=== PATIENT | female | born 1945 | race Caucasian/White ===

== ENCOUNTER 2018-01-06 13:29 | Emergency (ER) ==
[2018-01-06 13:36] VITALS: BP 167/72; TEMP 97.6; BMI 47.9
--- NOTE | 2018-01-06 14:38 | CT ---
EXAM: CT head without contrast HISTORY: Dizzy COMPARISON: None TECHNIQUE: Serial axial images of the brain were obtained from the skull base to the vertex without IV contrast. FINDINGS: The ventricles, cisterns and sulci demonstrate mild generalized volume loss. The otto-whi te matter junction is maintained. There is mild low attenuation in the periventricular white matter. No midline shift or mass is identified. There is no abnormal intra or extra-axial fluid collection. The paranasal sinuses and mastoid air cells are clear. The osseous calvarium is intact. IMPRESSION: 1. No acute intracranial abnormality or hemorrhage. 2. Generalized volume loss and microangiopathy. If there is concern for stroke, MRI may be obtained.
--- NOTE | 2018-01-06 14:47 | CT ---
EXAM: CT chest without contrast HISTORY: Cough COMPARISON: None TECHNIQUE: CT chest performed without intravenous contrast. Coronal and sagittal reformatted images obtained. FINDINGS: There is enlarged right thyroid with possible dominant nodule, poorly evaluated due to art ifact. Heart normal in size. No pericardial effusion. Aorta normal in caliber. Mild atheroscleros is. Small hiatal hernia. Evaluation for lymphadenopathy limited without contrast. No lymphadenopat hy identified. Granulomatous calcification. Patient status post cholecystectomy. No acute abnormal ities of the bones. Degenerative change in the spine. The central airway patent. No airspace consol idation. No pleural effusion or pneumothorax. 4 mm micronodule nodule right lung image 33, 2 mm stef ronodule right lung image 32, 4 mm micronodule right lung image 29, 2 mm micronodule left lung image 32. IMPRESSION: 1. No acute cardiopulmonary process. 2. Enlarged right thyroid with suggestion of dominant nodule, poorly evaluated due to artifact. Rec ommend correlation with thyroid ultrasound. 3. Several micronodules measuring up to [address] chest follow-up can be considered in 12 months if patient at high risk for malignancy, such as a smoker or former smoker. Otherwise, no follow-up otto mmended.
--- NOTE | 2018-01-06 15:40 | ED.PDOC ---
General ED Provider: Dr. GAETANO GUTIÉRREZ Chief Complaint: Weakness Stated Complaint: GENERALIZED WEAKNESS Time Seen by Physician: 13:33 (SEEN WITH ENTIRE NURSING STAFF ON ARRIVAL IN ROOM 5) Mode of Arrival: Walk-In Information Source: Patient Exam Limitations: No limitations Primary Care Provider: FLOWER ANDRADE Nursing and Triage Documentation Reviewed and Agree: Yes Does patient meet sepsis criteria?: No System Inflammatory Response Syndrome: Not Applicable Sepsis Protocol: For patient's 13 years and over: Temp is 96.8 and below OR 101 and greater Pulse >90 BPM Resp >20/minute Acutely Altered Mental Status Are patient's symptoms suggestive of a new infection, such as: -Pneumonia -Skin, Soft Tissue -Endocarditis -UTI -Bone, Joint Infection -Implantable Device -Acute Abdominal Infection -Wound Infection -Meningitis -Blood Stream Catheter Infection -Unknown Neurological Complaint Exam - Weakness Complaint/Exam Last Known Well: LAST WEEK Onset: Gradual Duration: 7 DAYS Symptoms Are: Still present Timing: Constant Episodes Lasting: Days Initial Severity: Mild Current Severity: Mild Character: Reports: Weak. Denies: Head spinning, Room spinning, Lightheaded Aggravating: Reports: None Alleviating: Reports: None Associated Signs and Symptoms: Denies: Nausea, Vomiting, Diaphoresis, Tinnitus, Chest pain, Short of air, Palpitations, Unsteady gait, GI blood loss, Visual changes, Decreased oral intake, Change in medication, Change in diet, OTC meds, Loss of balance Related History: Similar episode Review of Systems - Review Of Systems Constitutional: Reports: Malaise, Weakness Eyes: Reports: No symptoms Ears, Nose, Mouth, Throat: Reports: No symptoms Respiratory: Reports: No symptoms Cardiac: Reports: No symptoms GI: Reports: No symptoms : Reports: No symptoms Musculoskeletal: Reports: No symptoms Skin: Reports: No symptoms Neurological: Reports: No symptoms Endocrine: Reports: No symptoms Hematologic/Lymphatic: Reports: No symptoms All Other Systems: Reviewed and Negative Past Medical History - Past Medical History Previously Healthy: Yes Endocrine: Reports: None Cardiovascular: Reports: Hypertension Respiratory: Reports: None Hematological: Reports: None Gastrointestinal: Reports: None Genitourinary: Reports: None Neuro/Psych: Reports: None Musculoskeletal: Reports: None Cancer: Reports: None Last Menstrual Period: NONE - Surgical History General Surgical History: Reports: None - Family History Family History: Reports: None - Social History Smoking Status: Never smoker Hx Substance Use: No Alcohol Screening: Occasionally Physical Exam - Physical Exam Appearance: Well-appearing, No pain distress, Well-nourished Eyes: VALENCIA, EOMI, Conjunctiva clear ENT: Ears normal, Nose normal, Oropharynx normal Respiratory: Airway patent, Breath sounds clear, Breath sounds equal, Respirations nonlabored Cardiovascular: RRR, Pulses normal, No rub, No murmur GI/: Soft, Nontender, No masses, Bowel sounds normal, No Organomegaly Musculoskeletal: Normal strength, ROM intact, No edema, No calf tenderness Skin: Warm, Dry, Normal color Neurological: Sensation intact, Motor intact, Reflexes intact, Cranial nerves intact, Alert, Oriented Psychiatric: Affect appropriate, Mood appropriate Interpretation - Radiology Interpretation Radiology Interpretation By: Radiologist Radiology Results: No acute changes - Day Treatment Clinician/Art Therapist Rate: Normal Ectopy: None - EKG Interpretation Rate: Normal Rhythm: Sinus Re-Evaluation - Re-Evaluation Time of Re-Evaluation: 02:30 Status: Improved Vital Signs Stable: Yes Pain Level: 0 Appearance: NAD Lungs: Clear Skin: Warm and Dry Neuro: Alert and Oriented X3 CV: RRR - Re-Evaluation Time of Re-Evaluation: 15:40 Status: Improved Vital Signs Stable: Yes Pain Level: 0 Appearance: NAD Skin: Warm and Dry Neuro: Alert and Oriented X3 CV: RRR Critical Care Note - Critical Care Note Total Time (mins): 0 Course - Course Hematology/Chemistry: 01/06/18 13:45 01/06/18 13:45 Orders, Labs, Meds: Lab Review 01/06/18 01/06/18 01/06/18 13:45 13:45 13:45 WBC 6.37 RBC 4.08 L Hgb 12.8 Hct 37.3 MCV 91.4 MCH 31.4 H MCHC 34.3 RDW Coeff of Megan 12.6 Plt Count 194 Immature Gran % (Auto) 0.6 Neut % (Auto) 61.9 Lymph % (Auto) 28.3 Gaston % (Auto) 6.4 Eos % (Auto) 1.9 Baso % (Auto) 0.9 Immature Gran # (Auto) 0.0 Neut # (Auto) 3.9 Lymph # (Auto) 1.8 Gaston # (Auto) 0.4 Eos # (Auto) 0.1 Baso # (Auto) 0.1 PT 9.5 INR 0.95 APTT 24.7 Puncture Site O2 Saturation ABG pH ABG pCO2 ABG pO2 ABG HCO3 ABG Total CO2 ABG Base Excess Andrez Test FiO2 % Sodium 138 Potassium 4.0 Chloride 101 Carbon Dioxide 29 Anion Gap 12.0 BUN 16 Creatinine 1.11 Estimated GFR (MDRD) 48.00 BUN/Creatinine Ratio 14.41 Glucose 103 Calcium 9.8 Total Bilirubin 0.6 AST 21 ALT 19 Alkaline Phosphatase 70 Total Creatine Kinase 30 Troponin I 0.0100 Total Protein 7.2 Albumin 3.2 L Globulin 4.0 Albumin/Globulin Ratio 0.80 TSH 2.123 Free T4 0.96 01/06/18 13:49 WBC RBC Hgb Hct MCV MCH MCHC RDW Coeff of Megan Plt Count Immature Gran % (Auto) Neut % (Auto) Lymph % (Auto) Gaston % (Auto) Eos % (Auto) Baso % (Auto) Immature Gran # (Auto) Neut # (Auto) Lymph # (Auto) Gaston # (Auto) Eos # (Auto) Baso # (Auto) PT INR APTT Puncture Site Rr O2 Saturation 96.0 ABG pH 7.423 ABG pCO2 41.3 ABG pO2 80.0 L ABG HCO3 27.0 H ABG Total CO2 26 ABG Base Excess 3 H Andrez Test + FiO2 % 21.0 Sodium Potassium Chloride Carbon Dioxide Anion Gap BUN Creatinine Estimated GFR (MDRD) BUN/Creatinine Ratio Glucose Calcium Total Bilirubin AST ALT Alkaline Phosphatase Total Creatine Kinase Troponin I Total Protein Albumin Globulin Albumin/Globulin Ratio TSH Free T4 Orders Category Date Time Status ABG DRAW REQUEST Stat CARDIO 01/06/18 13:51 Completed EKG-(ED ONLY) Stat CARDIO 01/06/18 13:49 Completed ED IV/MEDIPORT/POWERPORT .ONCE EMERGENCY 01/06/18 13:49 Active ED IV/MEDIPORT/POWERPORT .ONCE EMERGENCY 01/06/18 13:50 Active ABG Stat LAB 01/06/18 13:49 Completed CBC W/ AUTO DIFF Stat LAB 01/06/18 13:45 Completed COMPREHENSIVE METABOLIC PANEL Stat LAB 01/06/18 13:45 Completed CREATINE KINASE Stat LAB 01/06/18 13:45 Completed FREE T4 (FREE THYROXINE) Stat LAB 01/06/18 13:45 Completed PARTIAL THROMBOPLASTIN TIME Stat LAB 01/06/18 13:45 Completed PT WITH INR Stat LAB 01/06/18 13:45 Completed THYROID STIMULATING HORMONE Stat LAB 01/06/18 13:45 Completed TROPONIN I Stat LAB 01/06/18 13:45 Completed 0.9 % Sodium Chloride [Saline Flush] MEDS 01/06/18 13:48 Active 1 syr IVF PRN PRN 0.9 % Sodium Chloride [Saline Flush] MEDS 01/06/18 13:50 Active 1 syr IVF PRN PRN [address] CHEST W/O CONTRAST Stat RADS 01/06/18 13:[address] HEAD W/O CONTRAST Stat RADS 01/06/18 13:51 Completed Medications Generic Name Dose Route Start Last Admin Trade Name Freq PRN Reason Stop Dose Admin Sodium Chloride 1 syr 01/06/18 13:48 Saline Flush IVF PRN PRN To flush IV Sodium Chloride 1 syr 01/06/18 13:50 Saline Flush IVF PRN PRN To flush IV Vital Signs: Temp Pulse Resp BP Pulse Ox 01/06/18 13:30 97.6 F 57 L 20 167/72 H 97 Departure - Departure Time of Disposition: 15:40 (WITH SIDRA FROM ADMINSTRATION DISCUSSED THE LABS ) Disposition: HOME SELF-CARE Discharge Problem: Generalized weakness Instructions: Weakness (ED) Condition: Good Pt referred to PMD for follow-up: Yes IPMP verified?: No Additional Instructions: Please call your Family Physician as soon as possible to schedule a follow-up appointment. Allergies/Adverse Reactions: Allergies No Known Allergies Allergy (Verified 01/06/18 13:36) Home Medications: Ambulatory Orders Aspirin [Aspirin Chewable] 81 mg PO DAILYWM 01/06/18 Chlorthalidone 25 mg PO DAILY 01/06/18 Cholecalciferol (Vitamin D3) [Vitamin D3] 5,000 unit PO DAILY 01/06/18 Clopidogrel Bisulfate [Clopidogrel] 75 mg PO DAILY 01/06/18 Meclizine HCl [Antivert] 25 mg PO TID 01/06/18 Nebivolol HCl [Bystolic] 5 mg PO DAILY 01/06/18 Simvastatin 20 mg PO DAILY 01/06/18 Valsartan [Diovan] 320 mg PO DAILY 01/06/18
== END 2018-01-06 16:17 | disposition home or self-care (01) ==
LOC: ED 13:29
DX: R53.1 Weakness (principal); R91.1 Solitary pulmonary nodule; I10 Essential (primary) hypertension; Z79.899 Other long term (current) drug therapy
CPT/HCPCS: 36415; 80053; 82550; 82803; 84439; 84443; 84484; 85025; 85610; 85730; 93005; 93010; 99283

== ENCOUNTER 2019-01-15 06:46 | Day surgery (SDC) | payer OTHER ==
[2019-01-15] MEDS: TETRACAINE 0.5% UNIT-DOSE OP PRN ×6 (07:20→09:33)
[2019-01-15] MEDS: AK-DILATE 10% OPTH SOL OP PRN ×3 (07:21→07:31)
[2019-01-15] MEDS: CYCLOGYL 2% OPTH OP PRN ×3 (07:21→07:31)
[2019-01-15 07:33] VITALS: TEMP 97.1
[2019-01-15] MEDS ORDERED: LIDOCAINE 1% 20 ML MDV ID STA (07:33)
[2019-01-15] MEDS ORDERED: BETADINE OPTH PREP OP ONE (07:33)
[2019-01-15] MEDS ORDERED: DIAMOX PO STA (07:33)
[2019-01-15] MEDS ORDERED: SUBLIMAZE ONE (09:15)
[2019-01-15] MEDS ORDERED: VERSED ONE (09:15)
[2019-01-15] MEDS ORDERED: DIAMOX ONE (09:50)
[2019-01-15 10:12] VITALS: BP 128/53
[2019-01-15] MEDS ORDERED: DIAMOX PO ONE (10:30)
--- NOTE | 2019-01-16 09:16 | OP ---
PREOPERATIVE DIAGNOSIS: VISUALLY SIGNIFICANT CATARACT, LEFT EYE. POSTOPERATIVE DIAGNOSIS: SAME. OPERATION PHACOEMULSIFICATION ASPIRATION OF CATARACT LEFT EYE. PLACEMENT OF POSTERIOR CHAMBER LENS. PHACO TIME 40.1 SECONDS AT 4.0% POWER. LENS MODEL TECPANDA [id number]. DIOPTER +22.5D. TECHNIQUE: CLEAR CORNEA. ANESTHESIA: TOPICAL ANESTHESIA W/ANESTHESIA MONITORING. OPERATIVE REPORT: Topical anesthesia consisting of Tetracaine was applied to the cornea and Xylocaine Methyl Paraben free of MFP was injected intracamerally into the anterior chamber. The patient was then brought into the operating room , prepped and draped in the usual ophthalmic manner. A lid speculum was placed and the operating microscope was used. A paracentesis was made at the 3 o' clock position. A clear corneal incision was made just out to the limbus. The anterior chamber was entered just inside the clear cornea. Viscoelastic was injected into the anterior chamber. A capsulotomy was performed with a bent # 27 gauge needle. Phacoemulsification was then performed in the posterior chamber. After completion of the phacoemulsification, residual cortical material was aspirated with the irrigation-aspiration system. The posterior capsule was polished. Viscoelastic was injected into the anterior and posterior chambers to inflate the capsular bag. Lens were placed via an Unfolder system and stabilized in the bag. Viscoelastic was removed from the anterior chamber. The wound was checked for any leakage. The four sponges were removed from the fornix. Topical antibiotic steroid and nonsteroidal drops were also applied to the cornea. A Hart shield was applied. The patient left the operating room in good condition without any complications. INTRAOPERATIVE MEDICATIONS: Xylocaine Methyl Paraben Free MPF MTDD
== END 2019-01-15 10:45 | disposition home or self-care (01) ==
LOC: SURG 06:46
PROVIDERS: ATTEND Ophthalmology
DX: Z96.1 Presence of intraocular lens (principal); H26.8 Other specified cataract